=== PATIENT | female | born 1950 | race Hispanic/Latino ===

== ENCOUNTER 2017-08-03 12:08 | Emergency (ER) | payer OTHER ==
[2017-08-03] MEDS ORDERED: HYDROCODONE/ACETAMINOPHEN 5/325 MG TAB ONE (12:21)
== END 2017-08-03 14:20 | disposition home or self-care (01) ==
LOC: EDH 12:08
DX: S02.2XXA Fracture of nasal bones, initial encounter for closed fracture (principal); S52.591A Other fractures of lower end of right radius, initial encounter for closed fracture; S52.592A Other fractures of lower end of left radius, initial encounter for closed fracture; S00.83XA Contusion of other part of head, initial encounter; E11.9 Type 2 diabetes mellitus without complications; I10 Essential (primary) hypertension; E78.5 Hyperlipidemia, unspecified; Z90.49 Acquired absence of other specified parts of digestive tract; Z90.710 Acquired absence of both cervix and uterus; Z98.890 Other specified postprocedural states; W18.39XA Other fall on same level, initial encounter; Y93.89 Activity, other specified; Y92.89 Other specified places as the place of occurrence of the external cause; Y99.8 Other external cause status
CPT/HCPCS: 29125; 70450; 70486; 73110; 73130

== ENCOUNTER 2022-01-18 11:06 | Emergency (ER) | payer OTHER ==
[~2022-01-18] VITALS: Ht 162.6 cm; Wt 95.3 kg
[~2022-01-18 11:06] MED LIST: ACET-2743 PO; AMLO-257 PO; DORZ10DR10 OP; ERGO50CA PO; FLUT16H NS; GABA-529 PO; GLIP5TAB11 PO; HYDR25TA PO; LATA7.5D OP; LEVO50CA4 PO; LORA10TA7 PO; LOSA100T58 PO; METF-444 PO; OXYB10TA30 PO; [UNRECOGNIZED DRUG - CODE] PO
[2022-01-18 11:36] VITALS: BP 97/75
[2022-01-18 14:25] LABS: BASOPHILS % (AUTO) 0.3 % (0.0-5.0); EOSINOPHILS % (AUTO) 0.2 % (0.0-8.0); HEMATOCRIT 39.9 % (36-48); LYMPHOCYTES % (AUTO) 26.8 % (21.0-51.0); MEAN CORPUSCULAR HEMOGLOBIN 28.7 pg (27.0-33.0); MEAN CORPUSCULAR HGB CONC 32.3 g/dL (32.0-36.0); MEAN CORPUSCULAR VOLUME 88.9 fL (79-99); MONOCYTES % (AUTO) 5.6 % (3.0-13.0); NEUTROPHILS % (AUTO) 66.5 % (40.0-77.0); PLATELET COUNT (AUTO) 377 K/uL (130-400); RED BLOOD CELL COUNT(AUTO) 4.49 MIL/uL (4.00-5.50); RED CELL DISTRIBUTION WIDTH 14.6 % (11.0-15.5); WHITE BLOOD COUNT (AUTO) 15.5 K/uL (4.8-10.8)
[2022-01-18 14:47] LABS: CREATININE 0.8 mg/dL (0.5-1.5); POTASSIUM 3.4 mmol/L (3.5-5.1)
[2022-01-18 14:51] LABS: ALBUMIN 3.5 g/dL (3.5-5.0)
[2022-01-18 14:59] LABS: APPEARANCE,URINE CLEAR (CLEAR); BILIRUBIN,URINE NEGATIVE (NEGATIVE); COLOR,URINE LIGHT-YELLOW (YELLOW); GLUCOSE, URINE (UA) NEGATIVE (NEGATIVE); KETONES,URINE NEGATIVE (NEGATIVE); LEUKOCYTE ESTERASE ,URINE 75 Leu/uL (NEGATIVE); NITRATE,URINE NEGATIVE (NEGATIVE); OCCULT BLOOD,URINE NEGATIVE (NEGATIVE); PH,URINE 5.5 (5.0-8.0); PROTEIN,URINE NEGATIVE (NEGATIVE); UROBILINOGEN,URINE 0.2 mg/dL (0.2-1.0)
[2022-01-18] MEDS ORDERED: PRED20TA3 PO (15:27)
[2022-01-18] MEDS ORDERED: ACET-66 PO (15:27)
[2022-01-18 15:29] LABS: BACTERIA,URINE RARE /HPF (None Seen); MUCUS,URINE RARE LPF (None Seen); RBC,URINE 0-1 /HPF (0-1); SQUAMOUS EPITHELIAL CELL,UR RARE /HPF (0-2)
[2022-01-18] MEDS ORDERED: PREDNISONE 20 MG TABLET PO ONE (15:30)
[2022-01-18] MEDS ORDERED: ACETAMINOPHEN 500 MG TABLET PO ONE (15:30)
== END 2022-01-18 15:31 | disposition home or self-care (01) ==
LOC: EDH 11:06
DX: M19.90 Unspecified osteoarthritis, unspecified site (principal); E11.9 Type 2 diabetes mellitus without complications; E78.00 Pure hypercholesterolemia, unspecified; I10 Essential (primary) hypertension; E03.9 Hypothyroidism, unspecified; Z20.822 Contact with and (suspected) exposure to COVID-19; Z79.899 Other long term (current) drug therapy; Z98.890 Other specified postprocedural states
CPT/HCPCS: 36415; 80053; 81001; 85025; 87077; 87088; 87186; 87635; 87804

== ENCOUNTER → 2025-01-07 | Outpatient (CLI) | payer OTHER ==
[~2025-01-07] MED LIST changes: +ACET-66 PO; -GLIP5TAB11 PO; +GLIP5TAB15 PO; -LEVO50CA4 PO; +LEVO50CA5 PO; -LOSA100T58 PO; +LOSA100T59 PO; +PRED20TA3 PO
--- NOTE | 2025-01-08 09:34 | HMCIMG ---
EXAM: CT Cardiac calcium scoring. CLINICAL HISTORY: CAD screening. TECHNIQUE: Thin collimated axial CT cardiac images were obtained. A CT scan is done according to ALARA (As Low As Reasonably Achievable). CONTRAST: None. COMPARISON: None provided. FINDINGS: Calcium Score: VESSEL Number of lesions Volume mm3 Equi. Mass/mg Calcium score LM 1 30.2 --.-- 37.0 LAD 5 515.7 --.-- 730.9 LCX 6 311.8 --.-- 449.9 RCA 16 822.3 --.-- 1108.8 Total 28 1680.1 --.-- 2326.6 IMPRESSION: The calcium score is 2326. This places the patient above 90th percentile in comparison to a group of patients asymptomatic for coronary artery disease with the same age and gender. This means that >90% of females aged 70-74 have a calcium score that is lower than the patient's. /[place]
== END | disposition home or self-care (01) ==
LOC: RAH 13:39
PROVIDERS: ATTEND Internal Medicine Cardiovascular Disease
DX: Z13.6 Encounter for screening for cardiovascular disorders (principal); I25.10 Atherosclerotic heart disease of native coronary artery without angina pectoris
CPT/HCPCS: 75571